=== PATIENT | female | born 1990 | race Caucasian/White ===

== ENCOUNTER → 2017-02-13 | Outpatient (REF) | payer OTHER ==
[~2017-02-13] MED LIST: AMOX500C; IBUP200C PO; IBUP60TA PO; MAGICMW MT; PERC5TAB6 PO; PERCOCET PO; VITAPRTA PO
== END ==
LOC: M SFHCLERA 19:31
PROVIDERS: ATTEND Nurse Practitioner Family
DX: J03.90 Acute tonsillitis, unspecified (principal)

== ENCOUNTER 2017-02-17 06:23 | Emergency (ER) | payer OTHER ==
[~2017-02-17] VITALS: Ht 165.1 cm; Wt 100.2 kg
[~2017-02-17 06:23] MED LIST changes: -AMOX500C; -IBUP200C PO; -MAGICMW MT
[2017-02-17 06:40] VITALS: BP 117/75
[2017-02-17] MEDS ORDERED: AMOX500C (06:46)
[2017-02-17] MEDS ORDERED: IBUP200C PO (06:46)
[2017-02-17] MEDS ORDERED: MAGIC MOUTHWASH SUSPENSION BTL SSP ONE (07:15)
[2017-02-17] MEDS ORDERED: predniSONE 20 MG TAB PO ONE (07:15)
[2017-02-17] MEDS ORDERED: MAGICMW MT (07:19)
== END 2017-02-17 07:36 | disposition home or self-care (01) ==
LOC: M ED 07:35
DX: J02.9 Acute pharyngitis, unspecified (principal); Z79.899 Other long term (current) drug therapy